=== PATIENT | male | born 2000 | race Caucasian/White ===

== ENCOUNTER 2021-02-19 20:57 | Observation (INO) | payer OTHER, BC, SELFPAY ==
--- NOTE | ~2021-02-19 | CT_ITS ---
EXAMINATION: CT brain wo con INDICATION: Head injury COMPARISON: None TECHNIQUE: Standard unenhanced head CT. The dose-length product (DLP) was 605.33 mGy-cm. The mA was a djusted according to patient size. Iterative reconstruction technique was employed. FINDINGS: There is a right frontal scalp hematoma. There is no intracranial hemorrhage, acute infarct ion, or abnormal mass lesion. The ventricles are normal. There is no abnormal mass effect or midline shift. The mccormick-white matter differentiation is normal. The basal cisterns are patent. The orbits are normal. There is mild mucosal thickening of the paranasal sinuses. IMPRESSION: 1. Right frontal scalp hematoma without acute intracranial abnormality. Reviewed, dictated and finalized at location F. ICAL QUALITY MANAGER
--- NOTE | ~2021-02-19 | XR_ITS ---
EXAMINATION: XR chest 1V INDICATION: Transient alteration of awareness TECHNIQUE: AP view of the chest is obtained. COMPARISON: 03/10/2016 FINDINGS: There are minimal airspace opacities of the lung bases. No pleural effusion or pneumothorax is identified. The cardiomediastinal silhouette is normal. IMPRESSION: 1. Minimal bibasilar airspace opacity, consistent with atelectasis versus pneumonia. Reviewed, dictated and finalized at location F. ER PIANO TECHNICIAN IMPRESSION: 1. Minimal bibasilar airspace opacity, consistent with atelectasis versus pneum onia.
[2021-02-19 21:00] VITALS: PULSE 124
[2021-02-19 21:09] VITALS: BP 152/88; PULSE 138; RESP 24; TEMP 36.7; O2SAT 100
--- NOTE | 2021-02-19 21:25 | ED.SEIZURE ---
HPI - Seizure General Chief Complaint: Seizure Stated Complaint: seizure, witnessed Time Seen by Provider: 02/19/21 21:19 Source: RN notes reviewed History of Present Illness HPI Narrative: Patient presents to emergency department from work via EMS for seizure. 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 but states he has not used methamphetamine since July he has had no formal work-up for seizures and is on any seizure medication states he did strike his head with swelling to his anterior forehead and headache denies any vision changes, chest pain shortness of breath abdominal pain nausea vomiting or any other Related Data Allergies Allergy/AdvReac Type Severity Reaction Status Date / Time codeine Allergy Unknown Verified 09/18/14 12:14 Review of Systems Review of Systems: Gen.: Denies fevers or chills Eyes: Denies eye pain or visual change ENT: Denies congestion Respiratory: Denies shortness of breath or cough CV: Denies chest pain or palpitations GI: Denies abdominal pain nausea, emesis or diarrhea Musculoskeletal: Denies back pain or muscle pain Neuro: See HPI Skin: Denies rash Except as documented, all other systems reviewed and negative [facility] Past Medical History Medical History (Updated 02/19/21 @ 23:05 by Sea Meraz DO) Seizure Family History Family History (Updated 09/18/14 @ 08:48 by DOCTOR UNKNOWN) Other Asthma Social History Social History Smoking status: Never smoker Exam Narrative: APPEARANCE: No acute distress, nontoxic, resting in bed HEENT: Normocephalic, swelling and tenderness over right forehead, OMM, EYES: PERRL, EOMI NECK: Supple, nontender, full range of motion without pain, no meningismus RESPIRATORY: No respiratory distress, clear to auscultation bilaterally with no rhonchi wheezing or rales CARDIOVASCULAR: RRR s murmur ABDOMINAL: Soft, nontender, nondistended MUSCULOSKELETAL: Moves all extremities. No clubbing, cyanosis or edema. NEURO: A and O ?3, following commands, speech normal, cranial nerves II through XII grossly intact,muscle strength 5 out of 5 bilateral upper and lower extremities SKIN:: Warm, dry. Normal Color PSYCHIATRIC: Normal affect/mood Course Course Emergency Course: Discussed with Dr. Bowser for neurology recommends patient loaded with Keppra 1000 mg x 1 this time followed by Keppra 500 twice daily request admission with EEG ordered This with patient benzodiazepines on UDS states that he does take intermittent Xanax but does not take it regularly Discussed Dr. Weir presentation work-up agrees with admission at this time Discussed with patient and family results of workup and diagnosis. Discussed need for admission. Patient and family understand and agree to current treatment plan Vital Signs Vital signs: Vital Signs Temperature 98.1 F 02/19/21 21:09 Pulse Rate 138 H 02/19/21 21:09 Respiratory Rate 24 H 02/19/21 21:09 Blood Pressure 152/88 H 02/19/21 21:09 Pulse Oximetry 100 02/19/21 21:09 Temperature 98.1 F 02/19/21 21:09 Pulse Rate 138 H 02/19/21 21:09 Respiratory Rate 24 H 02/19/21 21:09 Blood Pressure 152/88 H 02/19/21 21:09 Pulse Oximetry 100 02/19/21 21:09 MDM - Seizure Lab Data Result diagrams: 02/19/21 21:30 02/19/21 21:30 Labs: Lab Results 02/19/21 02/19/21 02/19/21 Range/Units 21:30 21:30 21:30 WBC 6.3 (4.5-10.0) K/mm3 RBC 4.86 (4.6-6.20) M/mm3 Hgb 14.9 (14.0-18.0) g/dL Hct 44.0 (42.0-52.0) % MCV 90.5 (80-100) fl MCH 30.7 (26-34) pg MCHC 33.9 (32-36) g/dl RDW 13.7 (11.5-14.5) % Plt Count 202 (150-375) k/mm3 MPV 8.8 (7.4-10.4) fl Immature Gran % (Auto) 0.2 (0-0.5) % Neut % (Auto) 62.7 (45.5-73.1) % Lymph % (Aut
[2021-02-19 21:36] LABS: Basophils Percent Auto 0.3 % (0.2-1.2); Eosinophils Absolute Auto 0.1 K/mm3 (0-0.3); Eosinophils Percent Auto 2.1 % (0-4.4); Hemoglobin 14.9 g/dL (14.0-18.0); Immature Granulocyte Absolute 0.01 K/mm3 (0.00-0.031); Immature Granulocyte Percent A 0.2 % (0-0.5); Lymphocytes Absolute Auto 1.58 K/mm3 (0.9-3.2); Lymphocytes Percent Auto 24.9 % (18.3-44.2); Mean Corpuscular HGB Conc 33.9 g/dl (32-36); Mean Corpuscular Hemoglobin 30.7 pg (26-34); Mean Corpuscular Volume 90.5 fl (80-100); Mean Platelet Volume 8.8 fl (7.4-10.4); Monocytes Absolute Auto 0.6 K/mm3 (0.1-0.6); Monocytes Percent Auto 9.8 % (2.6-8.5); Neutrophils Percent Auto 62.7 % (45.5-73.1); Platelet Count Result 202 k/mm3 (150-375); Red Blood Count 4.86 M/mm3 (4.6-6.20); Red Cell Distribution Width 13.7 % (11.5-14.5); White Blood Count 6.3 K/mm3 (4.5-10.0)
[2021-02-19 21:52] LABS: Alanine Aminotransferase 58 U/L (4-50); Albumin Level 4.8 g/dL (3.5-5.1); Alkaline Phosphatase 80 U/L (38-126); Anion Gap 4 mmol/L (8-16); Aspartate Amino Transferase 48 U/L (17-59); Bilirubin,Total 0.6 mg/dL (0.2-1.3); Blood Urea Nitrogen 19 mg/dL (9-20); Calcium 9.4 mg/dL (8.4-10.2); Carbon Dioxide 28 mmol/L (22-30); Chloride 102 mmol/L (98-107); Estimated CRCL calculation 122 ml/min; Estimated Glomerular Filt Rate > 60; Glucose 96 mg/dL (65-110); Potassium 3.8 mmol/L (3.4-5.0); Sodium 134 mmol/L (137-145)
[2021-02-19 22:23] LABS: Add Urine Microscopic? YES; Appearance Urine Clear (Clear); Bacteria Urine 2+ /hpf; Bilirubin Urine Negative (Negative); Blood Urine 3+ (Negative); Color Urine Yellow (Yellow); Glucose Urine UA Negative (Negative); Ketones Urine Negative (Negative); Leukocyte Esterase Ur Negative LEU/UL (Negative); Mucus Urine Rare /lpf; Nitrate Urine Negative (Negative); Protein Urine 1+ mg/dL (Negative); RBC Urine >75 /hpf (0-2); Specific Grav Ur 1.024 (1.001-1.035)
[2021-02-19] MEDS: levETIRAcetam 1000MG/NACL100ML 1,000 MG/100 ML BAG 400 MG IVPB (22:25)
[2021-02-19] MEDS: SODIUM CHLORIDE 0.9% IV 1,000 ML 999 ML IV CONT ×2 (22:25)
[2021-02-19 22:26] LABS: Ethanol < 10 mg/dL (<10)
[2021-02-19 22:33] LABS: Amphetamine Screen Urine Negative (Negative); Barbiturate Screen Urine Negative (Negative); Benzodiazepines Screen Urine Positive (Negative); Cannabinoid Screen Urine Positive (Negative); Cocaine Screen Urine Negative (Negative); Methadone Screen Urine Negative (Negative); Opiate Screen Urine Negative (Negative); Phencyclidine Screen Urine Negative (Negative)
[2021-02-20] MEDS: ACETAMINOPHEN 500 MG TABLET 1000 MG PO (01:00)
[2021-02-20] MEDS: SODIUM CHLORIDE 0.9% IV 1,000 ML 100 ML IV CONT (01:56)
[2021-02-20 01:59] VITALS: BMI 23.9
--- NOTE | 2021-02-20 02:31 | PC.NURSE ---
Recieved report from emergency department RN, Rica. Patient arrived to unit via wheelchair @ 0200. Changed into hospital gown and oriented to room and hospital setting. Call light placed within reach and successfully demonstrated use. Seizure pads placed along bed rails.
[2021-02-20 02:40] VITALS: BP 103/72; PULSE 78; RESP 17; TEMP 36.5; O2SAT 98
[2021-02-20 04:59] VITALS: BP 100/43; PULSE 78; RESP 16; TEMP 36.5; O2SAT 98
[2021-02-20] MEDS: QUEtiapine FUMARATE 25 MG TABLET PO (04:59)
[2021-02-20 05:46] LABS: Basophils Percent Auto 0.3 % (0.2-1.2); Eosinophils Absolute Auto 0.2 K/mm3 (0-0.3); Eosinophils Percent Auto 2.2 % (0-4.4); Hematocrit 38.3 % (42.0-52.0); Immature Granulocyte Absolute 0.01 K/mm3 (0.00-0.031); Immature Granulocyte Percent A 0.1 % (0-0.5); Lymphocytes Absolute Auto 2.22 K/mm3 (0.9-3.2); Lymphocytes Percent Auto 30.7 % (18.3-44.2); Mean Corpuscular HGB Conc 33.9 g/dl (32-36); Mean Corpuscular Hemoglobin 30.5 pg (26-34); Mean Corpuscular Volume 89.9 fl (80-100); Mean Platelet Volume 9.2 fl (7.4-10.4); Monocytes Percent Auto 13.3 % (2.6-8.5); Neutrophils Absolute Auto 3.9 K/mm3 (1.3-6.7); Neutrophils Percent Auto 53.4 % (45.5-73.1); Platelet Count Result 173 k/mm3 (150-375); Red Blood Count 4.26 M/mm3 (4.6-6.20); Red Cell Distribution Width 13.7 % (11.5-14.5); White Blood Count 7.2 K/mm3 (4.5-10.0)
[2021-02-20 05:59] LABS: Alanine Aminotransferase 42 U/L (4-50); Albumin Level 3.6 g/dL (3.5-5.1); Alkaline Phosphatase 54 U/L (38-126); Anion Gap -1 mmol/L (8-16); Aspartate Amino Transferase 34 U/L (17-59); Bilirubin,Total 0.5 mg/dL (0.2-1.3); Blood Urea Nitrogen 15 mg/dL (9-20); Carbon Dioxide 26 mmol/L (22-30); Chloride 109 mmol/L (98-107); Estimated CRCL calculation 135 ml/min; Estimated Glomerular Filt Rate > 60; Glucose 96 mg/dL (65-110); Potassium 3.8 mmol/L (3.4-5.0); Sodium 134 mmol/L (137-145)
[2021-02-20] MEDS: SERTRALINE HCL 50 MG TABLET 100 MG PO (09:44)
[2021-02-20] MEDS: busPIRone HCL 5 MG TABLET PO (09:45)
[2021-02-20] MEDS: levETIRAcetam 500 MG TABLET PO (09:45)
[2021-02-20] MEDS: GABAPENTIN 300 MG CAPSULE PO (09:57)
--- NOTE | 2021-02-20 10:14 | PC.NURSE ---
RN spoke w/ Dr. Almaraz. Patient is ok to discharge per him. Call office to schedule follow-up in 4 weeks.
--- NOTE | 2021-02-20 12:16 | PM.SD2 ---
Same Day Admit/Disch: HPI History of Present Illness Chief complaint: Seizure Narrative: Chato Olsen is a 20 year old male who presented to the ER from work by EMS for seizure episode. Patient had a witnessed tonic-clonic seizure at work. He does not remember the event and by the time he was awake he was already in the ambulance. He states that he went to work at 4:00 p.m. yesterday. He does report he had history of previous seizures which is felt secondary to methamphetamine use but states that he has used methamphetamine since 2 months now. His workup in the ER had unremarkable CBC and CMP ethyl alcohol level was negative urine drug screen was positive for benzodiazepine and cannabinoids. CT head was positive for right frontal scalp hematoma without any acute intracranial abnormality chest x-ray showed minimal bibasilar airspace opacity consistent with atelectasis versus pneumonia urinalysis showed some RBC in their without any marker for an infection. He was loaded with Keppra after consultation with the neurologist given episodes of recurrent seizures are and was monitored during the hospital stay. He was admitted for further monitoring. [facility] Past Medical History Medical History (Updated 02/19/21 @ 23:05 by Sea Meraz DO) Seizure Family History Family History (Updated 09/18/14 @ 08:48 by DOCTOR UNKNOWN) Other Asthma Social History Social History Smoking packs per day: 0.5 Smoking cigarettes per day: 10.0 Years smoked: 2 Smoking pack-years: 1.00 Smoking status: Current every day smoker Tobacco type: cigarettes Second hand tobacco smoke exposure: Yes Alcohol intake: former Substance use type: marijuana Last use: 02/19/21 Spiritual care concerns: No Same Day Admit/Disch: Med Pre-admit Medications Home Medications Medication Instructions Recorded Confirmed Type buspirone 5 mg PO TID 02/20/21 02/20/21 History gabapentin 300 mg PO DAILY 02/20/21 02/20/21 History quetiapine 25 mg PO HS MDD 100 02/20/21 02/20/21 History sertraline 100 mg PO DAILY 02/20/21 02/20/21 History Exam Narrative: APPEARANCE: No acute distress, nontoxic, resting in bed HEENT: Normocephalic, swelling and tenderness over right forehead, EYES: PERRL, EOMI NECK: Supple, nontender, full range of motion without pain, no meningismus RESPIRATORY: No respiratory distress, clear to auscultation bilaterally with no rhonchi wheezing or rales CARDIOVASCULAR: RRR s murmur ABDOMINAL: Soft, nontender, nondistended MUSCULOSKELETAL: Moves all extremities. No clubbing, cyanosis or edema. NEURO: A and O ?3, following commands, speech normal, cranial nerves II through XII grossly intact,muscle strength 5 out of 5 bilateral upper and lower extremities SKIN:: Warm, dry. Normal Color PSYCHIATRIC: Normal affect/mood DS: Data Data Completed and Pending Labs on day of discharge: Labs from last 24 hours 02/20/21 02/20/21 02/19/21 05:39 05:39 22:10 WBC 7.2 RBC 4.26 L Hgb 13.0 L Hct 38.3 L MCV 89.9 MCH 30.5 MCHC 33.9 RDW 13.7 Plt Count 173 MPV 9.2 Immature Gran % (Auto) 0.1 Neut % (Auto) 53.4 Lymph % (Auto) 30.7 Falls % (Auto) 13.3 H Eos % (Auto) 2.2 Baso % (Auto) 0.3 Lymph # (Auto) 2.22 Falls # (Auto) 1.0 H Eos # (Auto) 0.2 Baso # (Auto) 0.0 Abs Immat Gran (auto) 0.01 Absolute Neuts (auto) 3.9 Absolute Nucleated RBC 0.0 Nucleated RBC % 0.0 Sodium 134 L Potassium 3.8 Chloride 109 H Carbon Dioxide 26 Anion Gap -1 L BUN 15 Creatinine 0.80 Estim Creat Clear Calc 135 Estimated GFR > 60 Glucose 96 Calcium 8.0 L Total Bilirubin 0.5 AST 34 ALT 42 Alkaline Phosphatase 54 Total Protein 6.0 L Albumin 3.6 Urine Color Urine Appearance Urine pH Ur Specific [place] Urine Protein Urine Glucose (UA) Urine Ketones Ur Blood (Man) Urine Nitrate Urine Bilirubin
[2021-02-20 12:25] VITALS: BP 119/68; PULSE 93; RESP 14; TEMP 36.7; O2SAT 100
--- NOTE | 2021-03-08 11:14 | P.CONNEU_ITS ---
Consult date: 03/08/21 HPI: Chato Olsen is a 20 year old male /did not see the patient. [facility] Past Medical History Medical History (Updated 02/19/21 @ 23:05 by Sea Meraz DO) Seizure Family History Family History (Updated 09/18/14 @ 08:48 by DOCTOR UNKNOWN) Other Asthma Social History Social History Smoking packs per day: 0.5 Smoking cigarettes per day: 10.0 Years smoked: 2 Smoking pack-years: 1.00 Smoking status: Current every day smoker Tobacco type: cigarettes Second hand tobacco smoke exposure: Yes Alcohol intake: former Substance use type: marijuana Last use: 02/19/21 Spiritual care concerns: No Meds Home Medications and Allergies Home Medications Medication Instructions Recorded Confirmed Type buspirone 5 mg PO TID 02/20/21 02/20/21 History gabapentin 300 mg PO DAILY 02/20/21 02/20/21 History levetiracetam [Keppra] 500 mg PO Q12HR #60 tablet 02/20/21 Rx quetiapine 25 mg PO HS MDD 100 02/20/21 02/20/21 History sertraline 100 mg PO DAILY 02/20/21 02/20/21 History Allergies Allergy/AdvReac Type Severity Reaction Status Date / Time codeine Allergy Unknown Verified 09/18/14 12:14 Results Labs CBC & Chem 7: 02/20/21 05:39 02/20/21 05:39
== END 2021-02-20 12:56 | disposition home or self-care (01) ==
LOC: ANHED 23:05 → ANHSUROVER 02-20 09:32
PROVIDERS: Admitting Provider Internal Medicine; Emergency Provider Emergency Medicine; PCP Physician Assistant; Visit Provider Internal Medicine
DX: R56.9 Unspecified convulsions (principal); F17.210 Nicotine dependence, cigarettes, uncomplicated; F12.90 Cannabis use, unspecified, uncomplicated; Z79.899 Other long term (current) drug therapy
CPT/HCPCS: 36415; 70450; 71045; 80053; 80307; 81001; 85025; 87086; 96361; 96365; 99285; A9270; G0378; J1953; J7030

== ENCOUNTER 2021-10-24 15:41 | Emergency (ER) | payer BC, SELFPAY ==
--- NOTE | ~2021-10-24 | US_ITS ---
EXAMINATION: US scrotum doppler DATE: 10/24/2021 17:11 INDICATION: Painful swollen testicle. TECHNIQUE: Testicular sonogram utilizing grayscale and Doppler COMPARISON: None. FINDINGS: The right testis measures 4.4 x 2.4 x 2.9 cm. The left testis measures 5.3 x 2.8 x 3.3 cm. Normal rig ht testicular grayscale appearance with normal-appearing vascular flow on color Doppler. Subtle hypoe choic striations diffusely throughout the left testis with prominent asymmetric increased vascular fl ow suggestive of orchitis. The right epididymis is normal with normal vascular flow. The left epididy mis appears slightly thickened and edematous but with only mildly increased vascular flow on color Do ppler also suspicious for epididymitis. There is a small left hydrocele with diffuse low-level echoes . There is no varicocele or right hydrocele. IMPRESSION: 1. Edema, mild swelling and asymmetric increased vascular flow in the left epididymis and most promi nently in the left testis consistent with epididymoorchitis. Line 2. Likely secondary small left hydrocele. Reviewed, dictated and finalized at location A. IMPRESSION: 1. Edema, mild swelling and asymmetric increased vascular flow in the left epi didymis and most prominently in the left testis consistent with epididymoorchit is. Line 2. Likely secondary small left hydrocele.
[2021-10-24 15:43] VITALS: BP 113/85; PULSE 106; RESP 16; TEMP 36.7; O2SAT 100
[2021-10-24 19:42] VITALS: BP 132/88; PULSE 88; RESP 17; O2SAT 98
--- NOTE | 2021-10-24 21:21 | ED.MALEGU ---
HPI - Male Genitourinary General Chief complaint: Urogenital-Male <Stephanie Carranza PA-C - Last Filed: 10/24/21 21:52> Stated complaint: swollen L testicle <RAYNE Villagran Last Filed: 10/24/21 21:52> Time Seen by Provider: 10/24/21 19:44 <Stephanie Carranza PA-C - Last Filed: 10/24/21 21:52> Source: patient <RAYNE Villagran Last Filed: 10/24/21 21:52> Mode of arrival: ambulatory <RAYNE Villagran Last Filed: 10/24/21 21:52> Limitations: no limitations <RAYNE Villagran Last Filed: 10/24/21 21:52> History of Present Illness HPI Narrative: This is a 20 year old male that presents to the ER for left testicular pain and swelling. Ongoing since yesterday. Does report concern for STDs. Denies fever, dysuria, rashes, or abnormal discharge. <RAYNE Villagran Last Filed: 10/24/21 21:52> Related Data Home medications: Home Medications Medication Instructions Recorded Confirmed buspirone 5 mg tablet 5 mg PO TID 02/20/21 02/20/21 gabapentin 300 mg capsule 300 mg PO DAILY 02/20/21 02/20/21 quetiapine 25 mg tablet 25 mg PO HS 02/20/21 02/20/21 sertraline 100 mg tablet 100 mg PO DAILY 02/20/21 02/20/21 <Stephanie Carranza PA-C - Last Filed: 10/24/21 21:52> Allergies/Adverse reactions: Allergies Allergy/AdvReac Type Severity Reaction Status Date / Time codeine Allergy Unknown Difficulty Verified 10/24/21 15:47 Breathing <RAYNE Villagran Last Filed: 10/24/21 21:52> Review of Systems Review of Systems: CONSTITUTIONAL: Denies fever GASTROINTESTINAL: Denies abdominal pain, nausea, vomiting GENITOURINARY: Denies dysuria or hematuria. SKIN: Denies rash <RAYNE Villagran Last Filed: 10/24/21 21:52> All systems reviewed & are unremarkable except as noted in HPI and below <Stephanie Carranza PA-C - Last Filed: 10/24/21 21:52> PMFSH Past Medical History Medical History: Medical History (Updated 10/24/21 @ 21:24 by Stephanie Carranza PA-C) Seizure <Stephanie Carranza PA-C - Last Filed: 10/24/21 21:52> Family History Family History: Family History (Updated 09/18/14 @ 08:48 by DOCTOR UNKNOWN) Other Asthma <Stephanie Carranza PA-C - Last Filed: 10/24/21 21:52> Social History Social History: Social History Smoking packs per day: 0.5 Smoking cigarettes per day: 10.0 Years smoked: 2 Smoking pack-years: 1.00 Smoking status: Current every day smoker Tobacco type: cigarettes Second hand tobacco smoke exposure: Yes Alcohol intake: former Substance use type: marijuana Last use: 02/19/21 Spiritual care concerns: No <Stephanie Carranza PA-C - Last Filed: 10/24/21 21:52> Exam Narrative: GENERAL: Well-appearing, well-nourished, and in no acute distress. HEAD: Normocephalic, atraumatic. EYES: EOMI. CHEST: Clear to auscultation. No respiratory distress. No wheezes rales or rhonchi HEART: Regular rate and rhythm. No murmur heard. Normal peripheral pulses. ABDOMEN: Soft, nontender, nondistended, normal active bowel sounds. EXTREMITIES: Normal range of motion. No edema. SKIN: Warm, dry, no rash. NEURO: No focal deficits. Alert and oriented x3. PSYCH: Normal mood and affect MALE GENITAL: Mild left testicular swelling, tender to palpation. Mild overlying scrotal redness. No abnormal rashes or discharge noted <Stephanie Carranza PA-C - Last Filed: 10/24/21 21:52> Course CHROME TANNING DRUM OPERATOR/PA Physician Supervision For this patient encounter, I reviewed the CHROME TANNING DRUM OPERATOR or PA documentation, treatment plan, and medical decision making <Leon Moran MD - Last Filed: 10/24/21 22:13> Vital Signs Vital signs: Vital Signs Temperature 98.1 F 10/24/21 15:43 Pulse Rate 106 H 10/24/21 15:43 Respiratory Rate 16 10/24/21 15:43 Blood Pressure 113/85 10/24/21 15:43 Pulse Oximetry 100 10/24/21 15:43 Temperature 98.1 F 10/24/21 15:43 Pulse Rate 80 10/24/21 22:07 Respiratory Rat
[2021-10-24 21:30] LABS: Appearance Urine Slightly Cloudy (Clear); Bilirubin Urine 1+ (Negative); Blood Urine Negative (Negative); Color Urine Yellow (Yellow); Glucose Urine UA Negative (Negative); Ketones Urine Negative (Negative); Leukocyte Esterase Ur Negative LEU/UL (Negative); Nitrate Urine Negative (Negative); Protein Urine Trace mg/dL (Negative)
[2021-10-24 21:33] LABS: Add Urine Microscopic? YES; Mucus Urine Heavy /lpf; RBC Urine 0-2 /hpf (0-2); Squamous Epithelial Cell Urine Rare /hpf (Few); WBC Urine 0-3 /hpf
[2021-10-24] MEDS: WATER, STERILE FOR INJECTION 10 ML VIAL XX (21:52)
[2021-10-24] MEDS: cefTRIAXone 1 GM VIAL 0.5 GM IM (21:52)
[2021-10-24 22:07] VITALS: BP 132/66; PULSE 80; RESP 18; O2SAT 97
== END 2021-10-24 22:07 | disposition home or self-care (01) ==
PROVIDERS: Emergency Medicine; Emergency Provider Emergency Medicine; PCP Physician Assistant
DX: N45.3 Epididymo-orchitis (principal); F17.210 Nicotine dependence, cigarettes, uncomplicated
CPT/HCPCS: 76870; 81001; 87491; 87591; 93976; 96372; 99284; J0696

== ENCOUNTER 2022-07-13 10:30 | Emergency (ER) | payer OTHER, BC, SELFPAY ==
[2022-07-13 10:37] VITALS: BP 127/70; PULSE 101; RESP 16; TEMP 36.9; O2SAT 100
--- NOTE | 2022-07-13 10:54 | ED.MALEGU ---
HPI - Male Genitourinary General Chief complaint: Urogenital-Male Stated complaint: Male Urogenital Time Seen by Provider: 07/13/22 10:45 Source: patient and RN notes reviewed Mode of arrival: ambulatory Limitations: no limitations History of Present Illness HPI Narrative: Patient presents today with a 3 day history of urethral discharge and dysuria. Denies hematuria, abdominal pain, testicular pain, scrotal swelling or redness, genital sores. Patient had unprotected intercourse with a new partner approximately 1 week ago, but denies any known exposure to STIs. Related Data Home Medications Medication Instructions Recorded Confirmed buspirone 5 mg tablet 5 mg PO TID 02/20/21 02/20/21 gabapentin 300 mg capsule 300 mg PO DAILY 02/20/21 02/20/21 quetiapine 25 mg tablet 25 mg PO HS 02/20/21 02/20/21 sertraline 100 mg tablet 100 mg PO DAILY 02/20/21 02/20/21 Allergies Allergy/AdvReac Type Severity Reaction Status Date / Time codeine Allergy Unknown Difficulty Verified 10/24/21 15:47 Breathing Review of Systems Review of Systems: CONSTITUTIONAL: Denies body aches, fever, chills, or sweats. EYES: Denies visual changes, redness, or discharge. ENT: Denies rhinorrhea, congestion, sore throat, or otalgia. CARDIOVASCULAR: Denies chest pain, palpitations, or edema. RESPIRATORY: Denies cough or dyspnea. GASTROINTESTINAL: Denies abdominal pain, nausea, vomiting, or diarrhea. GENITOURINARY: + dysuria, urethral discharge. SKIN: Denies rash, itching, or wounds. MUSCULOSKELETAL: Denies back pain, joint pain, or myalgia. NEUROLOGIC: Denies headache, numbness, tingling, or weakness. PSYCH: Denies depression or anxiety. [facility] Past Medical History Medical History Seizure Family History Family History Other Asthma Social History Social History Smoking packs per day: 0.5 Smoking cigarettes per day: 10.0 Years smoked: 2 Smoking pack-years: 1.00 Smoking status: Current every day smoker Tobacco type: cigarettes Second hand tobacco smoke exposure: Yes Alcohol intake: former Substance use type: marijuana Last use: 02/19/21 Spiritual care concerns: No Comments At time of signature, I have reviewed and agree with nursing past medical, surgical, social and family history unless otherwise noted. Please see nursing chart for further information. There is no relevant family history pertinent to the presenting complaint Exam Narrative: GENERAL: Well-appearing, well-nourished, and in no acute distress. HEAD: Normocephalic, atraumatic. EYES: EOMI. No redness or drainage. Conjunctivae normal. ENT: Mucous membranes pink and moist. NECK: Normal AROM. CHEST: No respiratory distress. : Moderate clear yellow urethral discharge. Scant redness at the meatus. Penis is nontender. No genital sores noted. Scrotum is nontender without edema. Testicles are nontender. Exam chaperoned by Sharlene Spear RN. EXTREMITIES: Normal range of motion. No edema. SKIN: Warm, dry, no rash. Capillary refill normal. Normal skin turgor. NEURO: No focal deficits. Alert and oriented x3. Gait steady. PSYCH: Normal affect. No signs of depression or anxiety. Course Course Level of Care: Express Care Visit Vital Signs Vital signs: Vital Signs Temperature 98.5 F 07/13/22 10:37 Pulse Rate 101 H 07/13/22 10:37 Respiratory Rate 16 07/13/22 10:37 Blood Pressure 127/70 07/13/22 10:37 Pulse Oximetry 100 07/13/22 10:37 Oxygen Delivery Room Air 07/13/22 10:37 Temperature 98.5 F 07/13/22 10:37 Pulse Rate 101 H 07/13/22 10:37 Respiratory Rate 16 07/13/22 10:37 Blood Pressure 127/70 07/13/22 10:37 Pulse Oximetry 100 07/13/22 10:37 Oxygen Delivery Room Air 07/13/22 10:37 Reviewed. Pt has been inst
[2022-07-13] MEDS: cefTRIAXone 500 MG, LIDOCAINE HCL 1% LOCAL INJ 1 ML IM (11:04)
== END 2022-07-13 11:15 | disposition home or self-care (01) ==
PROVIDERS: Emergency Provider Nurse Practitioner
DX: R36.9 Urethral discharge, unspecified (principal); Z20.2 Contact with and (suspected) exposure to infections with a predominantly sexual mode of transmission
CPT/HCPCS: 81003; 87491; 87591; 87661; 96372; 99213; G0463; J0696

== ENCOUNTER 2024-04-01 15:24 | Emergency (ER) | payer BC, MEDICAID, SELFPAY ==
[2024-04-01 15:38] VITALS: BP 128/92; PULSE 112; RESP 16; TEMP 36.7; O2SAT 99
--- NOTE | 2024-04-01 17:33 | ED.SKABFB ---
HPI - Skin/Abscess/Foreign Bdy General Chief complaint: Skin/Abscess/Foreign Body Stated complaint: rash Source: patient, RN notes reviewed and old records reviewed Mode of arrival: ambulatory Limitations: no limitations History of Present Illness HPI narrative: Patient presents with complaints of itchy rash scattered to arms, trunk, head. Reports rash has been intermittent for 1 week. Says today is the worst it has been. He reports that rash is itchy. He has been putting mupirocin on the rash with no relief. Denies any change in lotions, soaps, detergent Related Data Home Medications ?Medication ?Instructions ?Recorded ?Confirmed ?Last Taken ?Type dextroamphetamine-amphetamine ER 20 mg PO DAILY 04/01/24 04/01/24 Unknown History 20 mg 24hr capsule,extend release Allergies Allergy/AdvReac Type Severity Reaction Status Date / Time codeine Allergy Unknown Difficulty Verified 04/01/24 17:03 Breathing Review of Systems Review of Systems: All systems reviewed & are unremarkable except as noted in HPI and below Constitutional: Constitutional: Reports no additional constitutional complaints ENT: Reports system reviewed and no additional complaints, except as documented Cardiovascular: Cardiovascular: Reports no additional cardiovascular complaints Respiratory: Respiratory: Reports no additional respiratory complaints Gastrointestinal: Gastrointestinal: Reports no additional gastrointestinal complaints Integumentary/Breasts: Skin/Breast: Reports system reviewed and no additional complaints, except as docu, Reports as per HPI and Reports rash PMFSH Past Medical History Medical History Seizure Family History Family History Other Asthma Social History Social History Smoking packs per day: 0.5 Smoking cigarettes per day: 10.0 Years smoked: 2 Smoking pack-years: 1.00 Smoking status: Current every day smoker Tobacco type: cigarettes Second hand tobacco smoke exposure: Yes Alcohol intake: former Substance use type: marijuana Last use: 02/19/21 Spiritual care concerns: No Comments At the time of my signature, I reviewed and agree with the nursing past medical, surgical, social, and family history. There is no relevant family history pertinent to the patient complaint. Exam Const: General: cooperative, no acute distress, alert and awake Orientation/consciousness: oriented to person, oriented to place and oriented to time HENMT: Head: normal to inspection Mouth: Yes moist mucous membranes Resp: Effort & Inspection: normal respiratory effort and able to speak in complete sentences Auscultation: clear to auscultation bilaterally, no crackles, no rales, no rhonchi and no wheezes Cardio: Palpation: normal PMI Rate: regular rate Rhythm: regular rhythm Heart sounds: S1 normal heart sound present and S2 normal heart sound present Skin: General skin exam: rashes (Maculopapular rash scattered to arms, trunk, face) Neuro: General: oriented to person, oriented to place and oriented to time Cranial nerves: Yes CN's II-XII intact bilaterally Psych: Appearance: grossly normal Thought process: Normal thought process present Insight: Good insight present (Psych) Judgement: Good judgement present (Psych) Course Course Level of Care: Express Care Visit Vital Signs Vital signs: Vital Signs Temperature 98.1 F 04/01/24 15:38 Pulse Rate 112 H 04/01/24 15:38 Respiratory Rate 16 04/01/24 15:38 Blood Pressure 128/92 H 04/01/24 15:38 Pulse Oximetry 99 04/01/24 15:38 Oxygen Delivery Room Air 04/01/24 15:38 Temperature 98.1 F 04/01/24 15:38 Pulse Rate 112 H 04/01/24 15:38 Respiratory Rate 16 04/01/24 15:38 Blood Pressure 128/92 H 04/01/24 15:38 Pulse Oximetry 99 04/01/24 15:38 Oxygen Delivery Room Air 04/01/24 15:38 Reviewed MDM - Skin/Abscess/Foreign Bdy MDM Narrative Medical decision making narrative: Patient with itchy rash, he cannot recall any changes to lotions, soaps, detergents. Denies any new foods. Not in any distress, no wheezing or stridor. Start prednisone. Discharge instructions reviewed with patient, as well as provided in writing per nursing staff. The instructions also include specific and strict return/GO TO THE ER as well as f/u information. All questions have been answered, and the patient deny any further questions with discharge and discharge plan. Some parts of this dictation were generated by voice recognition software and may contain typographical and/or grammatical inaccuracies. Differential Diagnosis Differential diagnosis: Likely dermatophytosis, allergic reaction to drug, insect bites and contact dermatitis Medical Records Attestation: I reviewed the patient's medical records. Discharge Plan Discharge Clinical Impression: Dermatitis Patient Disposition: Home, Self-Care Condition: Stable Instructions: Antibiotic Form, Dermatitis (ED) Additional Instructions: Take medications as prescribed. Follow-up with primary care provider. Emergency department for new or worse symptoms Patient Language: Setswana Prescriptions: New prednisone 50 mg tablet 50 mg PO DAILY Qty: 5 0RF No Action dextroamphetamine-amphetamine 20 mg capsule,extended release 24hr 20 mg PO DAILY Follow-up/Referrals: PHYSICIAN NOT ON STAFF,NONSTAFF [Primary Care Provider] - Time of Disposition: 17:39
== END 2024-04-01 17:44 | disposition home or self-care (01) ==
PROVIDERS: Emergency Provider Nurse Practitioner Family
DX: L30.9 Dermatitis, unspecified (principal); F17.210 Nicotine dependence, cigarettes, uncomplicated
CPT/HCPCS: 99213; G0463

== ENCOUNTER 2024-04-04 12:23 | Emergency (ER) | payer BC, MEDICAID, SELFPAY ==
--- OUTSIDE RECORDS SUMMARY | 2024-04-04 12:38 | XMS_ITS | Clinical Summary ---
Author Organization [facility] Address [address] [place] [address] Phone Care Team Providers Care Finishing Area Supervisor Name Role Phone Nani Shahid Primary Care Provider [phone] Allergies Active Allergy Reactions Criticality Noted Date Comments Codeine Shortness of Breath/Wheezing High 020 Medications No known medications Active Problems Problem Noted Date Diagnosed Date Seizure 05/20/2019 Drug reaction 05/20/2019 Facial laceration 05/20/2019 Social History Tobacco Use Types Packs/Day Years Used Date Smoking Tobacco: Every Day Cigarettes Alcohol Use Standard Drinks/Week Comments Not Currently 0 (1 standard drink = 0.6 oz pur e alcohol) Sex and Gender Information Value Date Recorded Sex Assigned at Not on file Legal Sex Male 1:32 PM CDT Gender Identity Not on file Sexual Orientation Not on file Last Filed Vital Signs Vital Sign Reading Time Taken Comments Blood Pressure 140/78 05/20/2019 5:35 PM CDT Pulse 127 05/20/2019 5:35 PM CDT Temperature 36.7 C (98.1 F) 05/20/2019 1:36 PM CDT Respiratory Rate 35 05/20/2019 5:35 PM CDT Oxygen Saturation 98% 05/20/2019 5:35 PM CDT Inhaled Oxygen Concentration - - Weight 66.7 kg (147 lb) 05/20/2019 1:36 PM CDT Height 180.3 cm (5' 11 ) 05/20/2019 1:36 PM CDT Body Mass Index 20.5 05/20/2019 1:36 PM CDT Plan of Treatment Health Maintenance Due Date Last Done Comments HPV VACCINES (1 - Male 3-dos e series) 11/03/2014 DTAP/TDAP/TD VACCINES (1 - Tdap) 11/03/2018 HEPATITIS B VACCINES (1 of 3 - 19+ 3-dose series) 11/03/2018 INFLUENZA VACCINE (#1) 2023 PNEUMOCOCCAL VACCINE 0-64 YEARS Aged Out No longer eligible based on patient's age to complete this topic Care Teams Finishing Area Supervisor Relationship Specialty Start Date End Date Nani Shahid PA PCP - General Physician Systems Mgr 05/20/19
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
--- OUTSIDE RECORDS SUMMARY | 2024-04-04 12:38 | XMS_ITS | Clinical Summary ---
Author Organization [facility] Address [address], [address] [address] Phone Care Team Providers Care Project Reservoir Engineer Name Role Phone John Vasquez MD Primary Care Provider [phone] Allergies Active Allergy Reactions Criticality Noted Date Comments Codeine Anaphylaxis,Shortness of Breath High 09/2012 Prochlorperazine Palpitations 07/02/2021 Medications busPIRone (BUSPAR) 15 MG Tablet buspirone 15 mg tablet TAKE 1 TABLET BY MOUTH TWICE A DAY DIRECTED Active QUEtiapine (SEROquel) 100 MG Tablet quetiapine 100 mg tablet TAKE 1 TABLET BY MOUTH EVERY DAY AT BEDTIME FOR 30 DAYS Active sertraline (ZOLOFT) 100 MG Tablet sertraline 100 mg tablet TAKE 1 TABLET BY MOUTH EVERY DAY DIRECTED Active Active Problems Problem Noted Date Diagnosed Date Inattention 07/02/2021 Anxiety Immunizations Immunization Administration Dates Next Due DTAP VACCINE 09/24/2005, 2,05/15/2000,2000,03/03/2000 HEP B/HIB Combined Vaccine 11/05/2000,04/07/2000 ,03/03/2000 Hib Vaccine,unspecified Formulation 06/02/2001 Inactivated Polio Vaccine 09/24/2005,,04/07/2000,2000 Influenza Vaccine, Quadrivalent, PF 11/08/2017 MMR Vaccine 09/24/2005,11/05/2000 Meningococcal Vaccine 11/08/2017,09/18/2014 Pneumococcal Vaccine Peds - 7 Valent ,05/15/2000,04/07/2000,2000 TDAP Vaccine 10/03/2011 Varicella Vaccine Live 10/03/2011,11/05/2000 Family History Medical History Relation Name Comments No Known Problems Father No Known Problems Mother Relation Name Status Comments Father Alive Mother Alive Social History Tobacco Use Types Packs/Day Years Used Date Smoking Tobacco: Every Day Cigarettes 0.5 6.3 Started: 12/2017 Smokeless Tobacco: Never Tobacco Cessation:Ready to Q uit: No; Counseling Given: Yes Alcohol Use Standard Drinks/Week Comments Not Currently 0 (1 standard drink = 0.6 oz pur e alcohol) PHQ-2 Answer Date Recorded Total Score - Questions 1-9 24 06/23 Sexually Active Control Partners Comments Not Currently Sex and Gender Information Value Date Recorded Sex Assigned at Not on file Legal Sex Male 2:26 AM CDT Gender Identity Not on file Sexual Orientation Not on file Last Filed Vital Signs Vital Sign Reading Time Taken Comments Blood Pressure 120/64 07/02/2021 7:17 AM CDT Pulse 94 07/02/2021 7:17 AM CDT Temperature 36.6 C (97.8 F) 07/02/2021 7:17 AM CDT Respiratory Rate 14 07/02/2021 7:17 AM CDT Oxygen Saturation 98% 07/02/2021 7:17 AM CDT Inhaled Oxygen Concentration - - Weight 68.5 kg (151 lb 1.6 oz) 07/02/2021 7:17 A M CDT Height 181.6 cm (5' 11.5 ) 07/02/2021 7:17 AM CD T Body Mass Index 20.78 07/02/2021 7:17 AM CDT Plan of Treatment Health Maintenance Due Date Last Done Comments Hepatitis C Virus (HCV) Screening 1999 Human Papillomavirus (HPV) Immunization (1 - Male 3-dose series) 11/03/2014 DTaP/Tdap/Td Immunization (7 - Td or Tdap) 10/02/2021 10/03/2011, 09/24/2005, 06/02/2001, Additional history exists Influenza Immunization (#1) 2023 11/08/2017 SARS-COV-2 Immunization (2023-25 season) 2023 Respiratory Syncytial Virus (RSV) Immunization (Adult) (1 - 1-dose 75+ series) 11/03/2074 Hepatitis B Immunization Completed 001, 04/07/2000, 03/03/2000 Pneumococcal Immunization Combined Aged Out 11/05/2000, 05/15/2000, 04/07/2000, Additional history exists No longer eligible based on patient's age to complete this topic Meningococcal Immunization (ACWY) Completed 11/08/2017, 09/18/2014 Rotavirus Immunization Aged Out No lo nger eligible based on patient's age to complete this topic Insurance MEDICAID [place] Care Teams Project Reservoir Engineer Relationship Specialty Start Date End Date John Vasquez MD PCP - General Family Medicine 07/02/21
[2024-04-04 12:56] VITALS: BP 137/84; PULSE 85; RESP 14; TEMP 36.3; O2SAT 100
--- NOTE | 2024-04-04 14:56 | ED.SKABFB ---
HPI - Skin/Abscess/Foreign Bdy General Chief complaint: Skin/Abscess/Foreign Body Stated complaint: rash x1 week Time Seen by Provider: 04/04/24 14:52 Source: patient Mode of arrival: ambulatory Limitations: no limitations History of Present Illness HPI narrative: This is a 23 year old male that presents to the ER for itchy rash. Ongoing over the last couple of days. No known exposures. He was seen at urgent care for this. Is currently taking Prednisone and Benadryl. Related Data Home Medications ?Medication ?Instructions ?Recorded ?Confirmed ?Last Taken ?Type dextroamphetamine-amphetamine ER 20 mg PO DAILY 04/01/24 04/01/24 Unknown History 20 mg 24hr capsule,extend release Allergies Allergy/AdvReac Type Severity Reaction Status Date / Time codeine Allergy Unknown Difficulty Verified 04/04/24 13:50 Breathing Review of Systems Review of Systems: CONSTITUTIONAL: Denies fever SKIN: Reports rash and itching. All systems reviewed & are unremarkable except as noted in HPI and below PMFSH Past Medical History Medical History Seizure Family History Family History (Reviewed 07/13/22 @ 10:55 by Afsaneh Negrete, [facility], ) Other Asthma Social History Social History (Reviewed 07/13/22 @ 10:55 by Afsaneh Negrete, [facility], ) Smoking packs per day: 0.5 Smoking cigarettes per day: 10.0 Years smoked: 2 Smoking pack-years: 1.00 Smoking status: Current every day smoker Tobacco type: cigarettes Second hand tobacco smoke exposure: Yes Alcohol intake: former Substance use type: marijuana Last use: 02/19/21 Spiritual care concerns: No Exam Narrative: GENERAL: Well-appearing, well-nourished, and in no acute distress. HEAD: Normocephalic, atraumatic. EYES: EOMI. CHEST: No respiratory distress. HEART: Regular rate EXTREMITIES: Normal range of motion. No edema. SKIN: Warm, dry. Papular rash present on the chest, back, arms NEURO: No focal deficits. Alert and oriented x3. PSYCH: Normal mood and affect Course Course Emergency Course: patient agrees with plan of care Vital Signs Vital signs: Vital Signs Temperature 97.4 F L 04/04/24 12:56 Pulse Rate 85 02/10/25 12:56 Respiratory Rate 14 04/04/24 12:56 Blood Pressure 137/84 04/04/24 12:56 Pulse Oximetry 100 04/04/24 12:56 Oxygen Delivery Room Air 04/04/24 12:56 Temperature 97.4 F L 04/04/24 12:56 Pulse Rate 85 04/04/24 12:56 Respiratory Rate 14 04/04/24 12:56 Blood Pressure 137/84 04/04/24 12:56 Pulse Oximetry 100 04/04/24 12:56 Oxygen Delivery Room Air 04/04/24 12:56 MDM - Skin/Abscess/Foreign Bdy MDM Narrative Medical decision making narrative: Patient presents the emergency department for itchy rash. Papular rash present to the chest, back, arms. Will be started on longer steroid taper and was instructed on scheduled antihistamines. He is to follow up with his PCP. He was given warnings to return to the ER Differential Diagnosis Differential diagnosis: Likely viral exanthem, urticaria, allergic reaction to drug, insect bites and contact dermatitis Critical Care Time Critical Care Time Critical Care Time: No Discharge Plan Discharge Clinical Impression: Rash and nonspecific skin eruption Patient Disposition: Home, Self-Care Condition: Stable Instructions: Acute Rash (ED) Additional Instructions: Return to the emergency department if you experience worsening symptoms, or any other concerns Take a Pepcid and Zyrtec daily. Take steroid taper as prescribed. Benadryl as needed for severe itching Follow-up with your primary care doctor Patient Language: Telugu Prescriptions: New prednisone 10 mg tablet 10 mg PO DAILY Qty: 45 0RF Rx Instructions: 5 tabs daily for 3 days, 4 tabs daily for 3 days, 3 tabs daily for 3 days, 2 tabs daily for 3 days, 1 tab daily for 3 days No Action dextroamphetamine-amphetamine 20 mg capsule,extended release 24hr 20 mg PO DAILY prednisone 50 mg tablet 50 mg PO DAILY Qty: 5 0RF Follow-up/Referrals: PHYSICIAN NOT ON STAFF,NONSTAFF [Primary Care Provider] -
--- OUTSIDE RECORDS SUMMARY | 2024-04-04 15:08 | XMS_ITS | Clinical Summary ---
Author Organization [facility] Address [address] [place] [address] Phone Care Team Providers Care Supervisor Riveting Name Role Phone Nani Shahid Primary Care Provider [phone] Allergies Active Allergy Reactions Criticality Noted Date [...] age to complete this topic Care Teams Supervisor Riveting Relationship Specialty Start Date End Date Nani Shahid PA PCP - General Physician Welding Manager 05/20/19
--- OUTSIDE RECORDS SUMMARY | 2024-04-04 15:08 | XMS_ITS | Clinical Summary ---
Author Organization [facility] Address [facility] [place] [address] Care Team Providers Care Sales And Marketing Analyst Name Role Phone None, Provider Primary Care Provider Unavaila ble Allergies Active Allergy Reactions Criticality Noted Date Comments Codeine Shortness of Breath High 08/11/2022 Medications No known medications Active Problems No known active problems Social History Tobacco Use Types Packs/Day Years Used Date Smoking Tobacco: Every Day Cigarettes Smokeless Tobacco: Never Tobacco Cessation:Ready to Q uit: Not Asked; Counseling Given: Not Answered Sex and Gender Information Value Date Recorded Sex Assigned at Not on file Legal Sex Male 5:28 PM CDT Gender Identity Not on file Sexual Orientation Not on file Last Filed Vital Signs Vital Sign Reading Time Taken Comments Blood Pressure 138/86 08/11/2022 4:34 PM CDT Pulse 93 08/11/2022 4:34 PM CDT Temperature 37 C (98.6 F) 08/11/2022 4:34 PM CDT Respiratory Rate 18 08/11/2022 4:34 PM CDT Oxygen Saturation 100% 08/11/2022 4:34 PM CDT Inhaled Oxygen Concentration - - Weight 72.6 kg (160 lb) 08/11/2022 4:34 PM CDT Height 180.3 cm (5' 11 ) 08/11/2022 4:34 PM CDT Body Mass Index 22.32 08/11/2022 4:34 PM CDT Plan of Treatment Health Maintenance Due Date Last Done Comments Annual Physical 11/03/2002 Pneumococcal Vaccine: Pediatrics (0 to 5 Years) and At-Risk Patients (6 to 64 Years) (1 of 2 - PCV) 11/03/2005 11/05/2000, 05/15/2000, 04/07/2000, Additional history exists HPV Vaccines (1 - Male 3-dose series) 11/03/2014 Hepatitis C 11/03/2017 DTaP, Tdap and Td Vaccines (7 - Td or Tdap) 10/02/2021 10/03/2011, 09/24/2005, 06/02/2001, Additional history exists COVID-19 Vaccine (2023- season) 2023 Influenza Adult (#1) 2023 11/08/2017 Hepatitis B Vaccines Completed 11/05/2000, 04/07/2000, 03/03/2000 Meningococcal Vaccine Completed 11/08/2017, 015 Meningococcal B Vaccine Aged Out No l onger eligible based on patient's age to complete this topic RSV Immunizations Under 20 Months Aged Out No longer eligible based on patient's age to complete [place] [address] [facility] Care Teams Sales And Marketing Analyst Relationship Specialty Start Date End Date None, Provider, MD PCP - General UNKNOWN PHYSICIAN SPECIALTY 08/11/22
--- OUTSIDE RECORDS SUMMARY | 2024-04-04 15:08 | XMS_ITS | Clinical Summary ---
Author Organization [facility] Address [address], [address] [address] Phone Care Team Providers Care Lead Die Molder Name Role Phone John Vasquez MD Primary Care Provider [phone] Allergies Active Allergy Reactions Criticality Noted Date [...] this topic Insurance [place]ID [place] Care Teams Lead Die Molder Relationship Specialty Start Date End Date John Vasquez MD PCP - General Family Medicine 07/02/21
--- OUTSIDE RECORDS SUMMARY | 2024-04-04 15:08 | XMS_ITS | Continuity of Care Document ---
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 Role Phone [facility] Unavailable Unavailable Problems Problem Status Onset Date [...] bid, # 60 capsule(s), Refill(s) 0, Pharmacy: [facility], 180, cm, 12/03/23 22:00:00 CDT, Height (cm), kg, 12/03/23 21:00:00 CDT, Weight (kg), 91.[address] [place] [address] Ibuprofen 200 MG Oral Tablet 400 mg = 2 Tablet(s), Oral, q6h, Scheduled / PRN PRN as needed for pain Active [address] [place] [address] Fexofenadine hydrochloride 60 MG Oral Tablet [Jaquelin] 60 mg = 1 Tablet(s), Oral, bid, Scheduled / PRN PRN as needed for allergy symptoms Active [address] [place] [address] Allergies, Adverse Reactions, Alerts Substance Category Reaction Severity Reaction type Status Date Reported Comments Source codeine Assertion Drug allergy Active [facility] Immunizations Immunization Date Given Site Status Last Updated Comments So nick diphtheria/pertu is acel/tetanus adult 12/03/2023 Right Upper Arm completed [facility] SURGERY Results Order Name Results Value Reference Range Date Interpretation Comments Source GENERAL CHEMISTRY BUN 12 mg/dL 6 - 20 12/06 09:49 :00 [facility] GENERAL CHEMISTRY Calcium 9.1 mg/dL 8.3 - 10.6 12/06 09:49 :00 [facility] GENERAL CHEMISTRY Glucose Lvl 99 mg/dL 70 - 139 12/06 09:49 :00 [facility] CHEMISTRY Chloride 107 mmol/L 98 - 107 12/06 09:49 :00 [facility] GENERAL CHEMISTRY Sodium 140 mmol/L 136 - 145 12/06 09:49 :00 [facility] GENERAL CHEMISTRY Potassium 3.8 mmol/L 3.5 - 5.1 12/06 09:49 :00 [facility] GENERAL CHEMISTRY CO2 29 mmol/L 20 - 31 12/06 09:49 :00 [facility] CHEMISTRY Anion gap 8 mmol/L 0 - 20 12/06 09:49 :00 [facility] CHEMISTRY Creatinine, standardized 0.6 mg/dL 0.7 - 1.2 12/06 09:49 :00 Interpretive Data: Ceoxds-uo-jxr e transgender patients on testosterone therapy should have results assessed using the male reference range. Kony-ef-pslsy e transgender patients on hormone-modul ating therapy clinical judgment is advisedfor assessment. [facility] GENERAL CHEMISTRY Estimated GFR for Adults 141 mL/min/1.7 3m 12/06 09:49 :00 Interpretive Data: Changed to CKD-EPI 2020 on 2020. [facility] GENERAL CHEMISTRY Estimated GFR for peds Not calculated 12/06 09:49 :00 Interpretive Data: The estimated GFR was calculated using the Rupinder rodríguez Sr equation (2009) . Reference: Pediatric GFR calculator at [employer] Website. [facility] GENERAL CHEMISTRY Mg++ 0.53 mmol/L 0.43 - 0.61 12/06 09:49 :00 [facility] GENERAL CHEMISTRY Ca++ 1.16 mmol/L 1.12 - 1.30 12/06 09:49 :00 [facility] HEMATOLOGY PROFILES WBC 6.46 x10(9)/L 3.50 - 10.50 12/06 09:49 :00 [facility] HEMATOLOGY PROFILES RBC 3.50 x10(12)/L 4.32 - 5.72 12/06 09:49 :00 [facility] HEMATOLOGY PROFILES HGB 10.9 g/dL 13.5 - 17.5 12/06 09:49 :00 Interpretive Data: Tlxvho-kv-kel e transgender patients on testosterone therapy should have results assessed using the male reference range. Hrsd-en-ghaiu e transgender patients on hormone-modul ating therapy clinical judgment is advisedfor assessment. [facility] HEMATOLOGY PROFILES HCT 32.3 % 38.8 - 50.0 12/06 09:49 :00 Interpretive Data: Bcbovf-wy-hri e transgender patients on testosterone therapy should have results assessed using the male reference range. Rzzy-nl-phbfi e transgender patients on hormone-modul ating therapy clinical judgment is advisedfor assessment. [facility] HEMATOLOGY PROFILES MCV 92.3 fL 81.2 - 95.1 12/06 09:49 :00 [facility] HEMATOLOGY PROFILES MCH 31.1 pg 26.0 - 33.0 12/06 09:49 :00 [facility] HEMATOLOGY PROFILES MCHC 33.7 g/dL 32.0 - 36.0 12/06 09:49 :00 [facility] HEMATOLOGY PROFILES RDW CV 14.0 % 11.8 - 15.6 12/06 09:49 :00 [facility] HEMATOLOGY PROFILES RDW SD 47.5 fL 35.1 - 43.9 12/06 09:49 :00 [facility] HEMATOLOGY PROFILES PLT 225 x10(9)/L 150 - 450 12/06 09:49 :00 [facility] HEMATOLOGY PROFILES MPV 9.2 8.0 - 12.0 12/06 09:49 :00 [facility] HEMATOLOGY PROFILES % Nucleated RBCs 0.0 % 12/06 09:49 :00 [facility] HEMATOLOGY PROFILES Absolute Nucleated RBCs 0.0 x10(9)/L 0.0 - 0.0 12/06 09:49 :00 Interpretive Data: Normal values not established in patients less than 18 years old. [facility] GENERAL CHEMISTRY BUN 7 mg/dL 6 - 20 12/04 11:55 :00 [facility] GENERAL CHEMISTRY Calcium 8.4 mg/dL 8.3 - 10.6 12/04 11:55 :00 [facility] GENERAL CHEMISTRY Glucose Lvl 99 mg/dL 70 - 139 12/04 11:55 :00 [facility] GENERAL CHEMISTRY Chloride 107 mmol/L 98 - 107 12/04 11:55 :00 [facility] GENERAL CHEMISTRY Sodium 136 mmol/L 136 - 145 12/04 11:55 :00 Result Comment: verified previous result [facility] GENERAL CHEMISTRY Potassium 3.7 mmol/L 3.5 - 5.1 12/04 11:55 :00 [facility] GENERAL CHEMISTRY CO2 26 mmol/L 20 - 31 12/04 11:55 :00 [facility] GENERAL CHEMISTRY Anion gap 7 mmol/L 0 - 20 12/04 11:55 :00 [facility] GENERAL CHEMISTRY Creatinine, standardized 0.6 mg/dL 0.7 - 1.2 12/04 11:55 :00 Interpretive Data: Yjfsfg-oz-tuu e transgender patients on testosterone therapy should have results assessed using the male reference range. Klpx-pn-nqrtf e transgender patients on hormone-modul ating therapy clinical judgment is advisedfor assessment. [facility] GENERAL CHEMISTRY Estimated GFR for Adults 141 mL/min/1.7 3m 12/04 11:55 :00 Interpretive Data: Changed to CKD-EPI 2020 on 2020. [facility] GENERAL CHEMISTRY Estimated GFR for peds Not calculated 12/04 11:55 :00 Interpretive Data: The estimated GFR was calculated using the B anne Sr equation (2009) . Reference: Pediatric GFR calculator at [employer] Website. [facility] HEMATOLOGY PROFILES WBC 9.63 x10(9)/L 3.50 - 10.50 12/04 11:55 :00 [facility] HEMATOLOGY PROFILES RBC 3.61 x10(12)/L 4.32 - 5.72 12/04 11:55 :00 [facility] HEMATOLOGY PROFILES HGB 11.2 g/dL 13.5 - 17.5 12/04 11:55 :00 Interpretive Data: Lgkppd-mm-bwm e transgender patients on testosterone therapy should have results assessed using the male reference range. Sony-yo-anlnj e transgender patients on hormone-modul ating therapy clinical judgment is advisedfor assessment. [facility] HEMATOLOGY PROFILES HCT 32.1 % 38.8 - 50.0 12/04 11:55 :00 Interpretive Data: Xyneqb-gt-tjd e transgender patients on testosterone therapy should have results assessed using the male reference range. Uynf-qf-dtrtl e transgender patients on hormone-modul ating therapy clinical judgment is advisedfor assessment. [facility] HEMATOLOGY PROFILES MCV 88.9 fL 81.2 - 95.1 12/04 11:55 :00 [facility] HEMATOLOGY PROFILES MCH 31.0 pg 26.0 - 33.0 12/04 11:55 :00 [facility] HEMATOLOGY PROFILES MCHC 34.9 g/dL 32.0 - 36.0 12/04 11:55 :00 [facility] HEMATOLOGY PROFILES RDW CV 14.3 % 11.8 - 15.6 12/04 11:55 :00 [facility] HEMATOLOGY PROFILES RDW SD 46.4 fL 35.1 - 43.9 12/04 11:55 :00 [facility] HEMATOLOGY PROFILES PLT 151 x10(9)/L 150 - 450 12/04 11:55 :00 [facility] HEMATOLOGY PROFILES MPV 9.7 8.0 - 12.0 12/04 11:55 :00 [facility] HEMATOLOGY PROFILES % Nucleated RBCs 0.0 % 12/04 11:55 :00 [facility] HEMATOLOGY PROFILES Absolute Nucleated RBCs 0.0 x10(9)/L 0.0 - 0.0 12/04 11:55 :00 Interpretive Data: Normal values not established in patients less than 18 years old. [facility] XR Chest Portable XR Chest Portable [...] Signed on: 12/05/23 09:38 12/04 04:18 :58 [facility] XR Chest XR Chest XR General Diagnostic [...] Signed on: 12/04/23 16:04 12/03 14:52 :00 [facility] GENERAL CHEMISTRY BUN 8 mg/dL 6 - 20 12/03 10:43 :00 [facility] GENERAL CHEMISTRY Calcium 9.6 mg/dL 8.3 - 10.6 12/03 10:43 :00 [facility] GENERAL CHEMISTRY Glucose Lvl 146 mg/dL 70 - 139 12/03 10:43 :00 [facility] GENERAL CHEMISTRY Chloride 103 mmol/L 98 - 107 12/03 10:43 :00 [facility] GENERAL CHEMISTRY Sodium 138 mmol/L 136 - 145 12/03 10:43 :00 [facility] GENERAL CHEMISTRY Potassium 4.4 mmol/L 3.5 - 5.1 12/03 10:43 :00 [facility] GENERAL CHEMISTRY CO2 29 mmol/L 20 - 31 12/03 10:43 :00 [facility] GENERAL CHEMISTRY Anion gap 10 mmol/L 0 - 20 12/03 10:43 :00 [facility] CHEMISTRY Creatinine, standardized 0.6 mg/dL 0.7 - 1.2 12/03 10:43 :00 Interpretive Data: Yhofdp-yd-sxp e transgender patients on testosterone therapy should have results assessed using the male reference range. Eslj-ql-sumna e transgender patients on hormone-modul ating therapy clinical judgment is advisedfor assessment. [facility] CHEMISTRY Estimated GFR for Adults 135 mL/min/1.7 3m 12/03 10:43 :00 Interpretive Data: Changed to CKD-EPI 2020 on 2020. [facility] CHEMISTRY Estimated GFR for peds Not calculated 12/03 10:43 :00 Interpretive Data: The estimated GFR was calculated using the Rupinder rodríguez Sr equation (2009) . Reference: Pediatric GFR calculator at [employer] Website. [facility] GENERAL CHEMISTRY Ca++ 1.14 mmol/L 1.12 - 1.30 12/03 10:43 :00 [facility] GENERAL CHEMISTRY Mg++ 0.43 mmol/L 0.43 - 0.61 12/03 10:43 :00 [facility] GENERAL CHEMISTRY Phosphorus 3.2 mg/dL 2.4 - 5.1 12/03 10:43 :00 [facility] HEMATOLOGY PROFILES WBC 11.97 x10(9)/L 3.50 - 10.50 12/03 10:43 :00 [facility] HEMATOLOGY PROFILES RBC 4.43 x10(12)/L 4.32 - 5.72 12/03 10:43 :00 [facility] HEMATOLOGY PROFILES HGB 13.7 g/dL 13.5 - 17.5 12/03 10:43 :00 Interpretive Data: Bgirlt-vb-iap e transgender patients on testosterone therapy should have results assessed using the male reference range. Kiic-rb-arglf e transgender patients on hormone-modul ating therapy clinical judgment is advisedfor assessment. [facility] HEMATOLOGY PROFILES HCT 40.1 % 38.8 - 50.0 12/03 10:43 :00 Interpretive Data: Vhjtxe-sb-hoi e transgender patients on testosterone therapy should have results assessed using the male reference range. Ervi-md-nqeor e transgender patients on hormone-modul ating therapy clinical judgment is advisedfor assessment. [facility] HEMATOLOGY PROFILES MCV 90.5 fL 81.2 - 95.1 12/03 10:43 :00 [facility] HEMATOLOGY PROFILES MCH 30.9 pg 26.0 - 33.0 12/03 10:43 :00 [facility] HEMATOLOGY PROFILES MCHC 34.2 g/dL 32.0 - 36.0 12/03 10:43 :00 [facility] HEMATOLOGY PROFILES RDW CV 14.5 % 11.8 - 15.6 12/03 10:43 :00 [facility] HEMATOLOGY PROFILES RDW SD 47.8 fL 35.1 - 43.9 12/03 10:43 :00 [facility] HEMATOLOGY PROFILES PLT 175 x10(9)/L 150 - 450 12/03 10:43 :00 [facility] HEMATOLOGY PROFILES MPV 9.4 8.0 - 12.0 12/03 10:43 :00 [facility] HEMATOLOGY PROFILES % Nucleated RBCs 0.0 % 12/03 10:43 :00 [facility] HEMATOLOGY PROFILES Absolute Nucleated RBCs 0.0 x10(9)/L 0.0 - 0.0 12/03 10:43 :00 Interpretive Data: Normal values not established in patients less than 18 years old. [facility] HEMATOLOGY PROFILES % Neutrophils 85.9 % 12/03 10:43 :00 [facility] HEMATOLOGY PROFILES % Lymphocytes 5.6 % 12/03 10:43 :00 [facility] HEMATOLOGY PROFILES % Monocytes 8.1 % 12/03 10:43 :00 [facility] HEMATOLOGY PROFILES % Eosinophils 0.0 % 12/03 10:43 :00 [facility] HEMATOLOGY PROFILES % Basophils 0.1 % 12/03 10:43 :00 [facility] HEMATOLOGY PROFILES % Immature Granulocytes 0.30 % 0.02 - 0.42 12/03 10:43 :00 [facility] HEMATOLOGY PROFILES Absolute Granulocytes 10.29 x10(9)/L 1.70 - 7.00 12/03 10:43 :00 [facility] HEMATOLOGY PROFILES Abs Lymphocytes 0.67 x10(9)/L 0.90 - 2.90 12/03 10:43 :00 [facility] HEMATOLOGY PROFILES Abs Monocytes 0.97 x10(9)/L 0.30 - 0.90 12/03 10:43 :00 [facility] HEMATOLOGY PROFILES Abs Eosinophils 0.00 x10(9)/L 0.05 - 0.50 12/03 10:43 :00 [facility] HEMATOLOGY PROFILES Abs Basophils 0.01 x10(9)/L 0.00 - 0.30 12/03 10:43 :00 [facility] HEMATOLOGY PROFILES Abs Immature Granulocytes 0.03 x10(9)/L 0.00 - 0.03 12/03 10:43 :00 [facility] XR Chest XR Chest XR General [...] Signed on: 12/04/23 08:42 12/03 05:14 :16 [facility] COAGULATIO N PT 10.3 s 9.4 - 12.5 12/02 22:02 :00 [facility] COAGULATIO N INR 0.9 0.9 - [...] M, Jayson DD, Kiki n holland HJ; [employer] Antithromboti c Therapy and Prevention of Thrombosis Panel. Executive summary: Antithromboti c Therapy and Prevention of Thrombosis, 9th Ed: [employer] Evidence-Base d Clinical Practice Guidelines. Chest. 2011; 141(2 Suppl):7S-47S . doi: 10.1378/chest .1412S3 [facility] GENERAL CHEMISTRY AST-SGOT 56 U/L 12/02 22:02 :00 [facility] GENERAL CHEMISTRY Albumin 3.7 g/dL 3.4 - 5.0 12/02 22:02 :00 [facility] GENERAL CHEMISTRY Alkaline Phosphatase 74 U/L 40 - 129 12/02 22:02 :00 [facility] GENERAL CHEMISTRY ALT-SGPT 38 U/L 10 - 50 12/02 22:02 :00 [facility] GENERAL CHEMISTRY BUN 9 mg/dL 6 - 20 12/02 22:02 :00 [facility] GENERAL CHEMISTRY Calcium 8.7 mg/dL 8.3 - 10.6 12/02 22:02 :00 [facility] GENERAL CHEMISTRY Glucose Lvl 108 mg/dL 70 - 139 12/02 22:02 :00 [facility] GENERAL CHEMISTRY Chloride 111 mmol/L 98 - 107 12/02 22:02 :00 [facility] GENERAL CHEMISTRY Sodium 142 mmol/L 136 - 145 12/02 22:02 :00 [facility] GENERAL CHEMISTRY Potassium 4.3 mmol/L 3.5 - 5.1 12/02 22:02 :00 [facility] GENERAL CHEMISTRY CO2 27 mmol/L 20 - 31 12/02 22:02 :00 [facility] GENERAL CHEMISTRY Anion gap 8 mmol/L 0 - 20 12/02 22:02 :00 [facility] GENERAL CHEMISTRY T Bili 0.46 mg/dL 0.30 - 1.20 12/02 22:02 :00 [facility] GENERAL CHEMISTRY Total Protein 6.6 g/dL 5.7 - 8.2 12/02 22:02 :00 [facility] GENERAL CHEMISTRY Creatinine, standardized 0.7 mg/dL 0.7 - 1.2 12/02 22:02 :00 Interpretive Data: Fnfttr-im-edt e transgender patients on testosterone therapy should have results assessed using the male reference range. Zwbk-js-oxwuh e transgender patients on hormone-modul ating therapy clinical judgment is advisedfor assessment. [facility] GENERAL CHEMISTRY Estimated GFR for Adults 130 mL/min/1.7 3m 12/02 22:02 :00 Interpretive Data: Changed to CKD-EPI 2020 on 2020. [facility] GENERAL CHEMISTRY Estimated GFR for peds Not calculated 12/02 22:02 :00 Interpretive Data: The estimated GFR was calculated using the B anne Sr equation (2009) . Reference: Pediatric GFR calculator at [employer] Website. [facility] HEMATOLOGY PROFILES WBC 11.24 x10(9)/L 3.50 - 10.50 12/02 22:02 :00 [facility] HEMATOLOGY PROFILES RBC 4.57 x10(12)/L 4.32 - 5.72 12/02 22:02 :00 [facility] HEMATOLOGY PROFILES HGB 14.6 g/dL 13.5 - 17.5 12/02 22:02 :00 Interpretive Data: Tziwip-jw-ekw e transgender patients on testosterone therapy should have results assessed using the male reference range. Vnuz-ha-duton e transgender patients on hormone-modul ating therapy clinical judgment is advisedfor assessment. [facility] HEMATOLOGY PROFILES HCT 41.8 % 38.8 - 50.0 12/02 22:02 :00 Interpretive Data: Tcyggs-ot-nbi e transgender patients on testosterone therapy should have results assessed using the male reference range. Yaoa-zb-rutir e transgender patients on hormone-modul ating therapy clinical judgment is advisedfor assessment. [facility] HEMATOLOGY PROFILES MCV 91.5 fL 81.2 - 95.1 12/02 22:02 :00 [facility] HEMATOLOGY PROFILES MCH 31.9 pg 26.0 - 33.0 12/02 22:02 :00 [facility] HEMATOLOGY PROFILES MCHC 34.9 g/dL 32.0 - 36.0 12/02 22:02 :00 [facility] HEMATOLOGY PROFILES RDW CV 13.2 % 11.8 - 15.6 12/02 22:02 :00 [facility] HEMATOLOGY PROFILES RDW SD 44.3 fL 35.1 - 43.9 12/02 22:02 :00 [facility] HEMATOLOGY PROFILES PLT 273 x10(9)/L 150 - 450 12/02 22:02 :00 [facility] HEMATOLOGY PROFILES MPV 9.4 8.0 - 12.0 12/02 22:02 :00 [facility] HEMATOLOGY PROFILES % Nucleated RBCs 0.0 % 12/02 22:02 :00 [facility] HEMATOLOGY PROFILES Absolute Nucleated RBCs 0.0 x10(9)/L 0.0 - 0.0 12/02 22:02 :00 Interpretive Data: Normal values not established in patients less than 18 years old. [facility] HEMATOLOGY PROFILES % Neutrophils 79.0 % 12/02 22:02 :00 [facility] HEMATOLOGY PROFILES % Lymphocytes 14.3 % 12/02 22:02 :00 [facility] HEMATOLOGY PROFILES % Monocytes 5.6 % 12/02 22:02 :00 [facility] HEMATOLOGY PROFILES % Eosinophils 0.4 % 12/02 22:02 :00 [facility] HEMATOLOGY PROFILES % Basophils 0.3 % 12/02 22:02 :00 [facility] HEMATOLOGY PROFILES % Immature Granulocytes 0.40 % 0.02 - 0.42 12/02 22:02 :00 [facility] HEMATOLOGY PROFILES Absolute Granulocytes 8.88 x10(9)/L 1.70 - 7.00 12/02 22:02 :00 [facility] HEMATOLOGY PROFILES Abs Lymphocytes 1.61 x10(9)/L 0.90 - 2.90 12/02 22:02 :00 [facility] HEMATOLOGY PROFILES Abs Monocytes 0.63 x10(9)/L 0.30 - 0.90 12/02 22:02 :00 [facility] HEMATOLOGY PROFILES Abs Eosinophils 0.04 x10(9)/L 0.05 - 0.50 12/02 22:02 :00 [facility] HEMATOLOGY PROFILES Abs Basophils 0.03 x10(9)/L 0.00 - 0.30 12/02 22:02 :00 [facility] HEMATOLOGY PROFILES Abs Immature Granulocytes 0.05 x10(9)/L 0.00 - 0.03 12/02 22:02 :00 [facility] XR Chest Portable XR Chest Portable [...] Signed on: 12/03/23 20:37 12/02 19:48 :30 [facility] XR Exam Incorrect Count XR Exam Incorrect [...] Signed on: 12/03/23 19:32 12/02 19:09 :28 [facility] XR Knee Left XR Knee Left XR [...] Signed on: 12/03/23 17:51 12/02 17:37 :[address] [facility] [address] Spine Cervical CT Spine Cervical CT [...] regarding this report please call [facility] at [phone] I have personally reviewed the images and attest to the contents of this report. * * *Final Report* * * Electronic ally Signed by: Margret Almanza DO Signed on: 12/03/23 20:59 Transcribe d date/time: 12/03/23 21:00 12/02 17:15 :[address] [facility] [address] Spine Lumbar CT Spine Lumbar CT [...] findings, as above. Electronic ally signed by Adlee Silverman MD at 12/03/2023 18:04 For questions regarding this report please call [facility] at I have personally reviewed the images and attest to the contents of this report. * * *Final Report* * * Electronic ally Signed by: Andrew MCMAHON, Cuauhtemoc Coleman Signed on: 12/04/23 06:58 Transcribe d date/time: 12/04/23 07:00 12/02 17:15 :[address] [facility] [address] Spine Thoracic CT Spine Thoracic CT [...] regarding this report please call [facility] at [phone] I have personally reviewed the images and attest to the contents of CT Scan/CT Angio Report this report. * * *Final Report* * * Electronic ally Signed by: Andrew MCMAHON, Cuauhtemoc Coleman Signed on: 12/04/23 06:58 Transcribe d date/time: 12/04/23 06:59 12/02 17:15 :[address] [facility] [address] Abdomen and Pelvis CT Abdomen and [...] Signed on: 12/03/23 18:52 12/02 17:15 :[address] [facility] [address] Head or Brain CT Head or [...] regarding this report please call [facility] at [phone] I have personally reviewed the images and attest to the contents of this report. * * *Final Report* * * Electronic ally Signed by: Margret Almanza DO Signed on: 12/03/23 20:53 Transcribe d date/time: 12/03/23 20:55 12/02 17:15 :[address] [facility] [address] Chest CT Chest CT Scan/CT Angio [...] Signed on: 12/03/23 18:52 12/02 17:15 :08 [facility] XR Chest Portable XR Chest Portable XR [...] Signed on: 12/03/23 17:43 12/02 17:03 :03 [facility] Consultation Notes Results Value Date Source Op/Procedure [...] abdominal wall avulsion 35 cm Right 28 Israeli chest tube thoracostomy Surgeon(s) Rajat Savage MD Apprenticeship Representative Resident(s), Coni Funes MD, Vincent Guerrero MS3 [...] skin partially closed with nylons over 2 [place] drains traversing the midline and lateral aspects [...] We began with placement of a 28 Israeli straight chest tube. Along the right inframammary [...] was done with #1 Vicryl's in interrupted hbdjrh-uv-kaekc fashion from above and below. We then replaced two 1 inch [place] is 1 along the midline underneath our [...] was evaluated in standard ATLS fashion. The public health internship [facility] resident was present for primary survey. [...] CDT [2] CT Head or Brain; [facility] 12/03/2023 18:00 CDT [3] [facility] 12/03/2023 18:00 CDT [4] CT Spine Thoracic; Benjamin RT(R) (CT), [facility] 12/03/2023 18:00 CDT [5] CT Spine Lumbar; Benjamin RT(R) (CT), [facility] 12/03/2023 18:00 CDT [6] XR Chest Portable; [...] Nontachycardic and normotensive. Patient was initially on NEEDLE GRADER for pain control but it was discontinued [...] lower abdominal wall avulsion Exploratory laparotomy Wide [place] drainage and closure large abdominal wall avulsion 35 cm Right 28 Israeli chest tube thoracostomy Consultants Pending Labs Discharge [...] SURGERY SBP NIBP 145 mm[Hg] 12/07/2023 13:40:37 [facility] DBP NIBP 77 mm[Hg] 12/07/2023 13:40:37 [facility] Mean NIBP 100 mm[Hg] 12/07/2023 13:40:37 [facility] Heart Rate 81 bpm 12/07/2023 13:40:37 [facility] SpO2 99 % 12/07/2023 13:40:37 [facility] Temperature (Celsius) 36.2 Kaylee 12/07/2023 13:40:37 [facility] Respiratory Rate 18 breaths/min 12/07/2023 13:40:37 [facility] SBP NIBP 126 mm[Hg] 12/07/2023 02:48:26 [facility] DBP NIBP 67 mm[Hg] 12/07/2023 02:48:26 [facility] Mean NIBP 86 mm[Hg] 12/07/2023 02:48:26 [facility] Heart Rate 94 bpm 12/07/2023 02:48:26 [facility] SpO2 97 % 12/07/2023 02:48:26 [facility] Temperature (Celsius) 36.9 Kaylee 12/07/2023 02:48:26 [facility] Respiratory Rate 16 breaths/min 12/07/2023 02:48:26 [facility] Heart Rate 91 bpm 12/06/2023 21:41:00 [facility] Respiratory Rate 18 12/06/2023 21:41:00 [facility] SpO2 100 % 12/06/2023 21:41:00 [facility] SBP NIBP 119 mm[Hg] 12/06/2023 19:29:35 [facility] DBP NIBP 74 mm[Hg] 12/06/2023 19:29:35 [facility] Mean NIBP 89 mm[Hg] 12/06/2023 19:29:35 [facility] Heart Rate 97 bpm 12/06/2023 19:29:35 [facility] SpO2 99 % 12/06/2023 19:29:35 [facility] Temperature (Celsius) 36.4 Kaylee 12/06/2023 19:29:35 [facility] Respiratory Rate 16 breaths/min 12/06/2023 19:29:35 [facility] Temperature (Celsius) 36.4 Kaylee 12/06/2023 13:00:00 [facility] SBP NIBP 116 mm[Hg] 12/06/2023 13:00:00 [facility] DBP NIBP 69 mm[Hg] 12/06/2023 13:00:00 [facility] Mean NIBP 85 mm[Hg] 12/06/2023 13:00:00 [facility] Height (cm) 180 cm 12/04/2023 02:00:00 [facility] Weight (kg) 91.8 kg 12/03/2023 23:34:00 [facility] Height (cm) 180 cm 12/03/2023 23:34:00 [facility] BMI 28.3 kg/m2 12/03/2023 23:34:00 [facility] Encounters Location Location Details Encounter Type Encounter Number Reason For Visit Attending Provider ADM Date DC Date Status Source [facility] Inpatient [id number] Vincent Renner 12/02 21:55 :30 12/06 21:50 :00 [facility] [id number] Carmelo Savage 12/16 18:00 :10 12/17 04:59 :59 [facility] [id number] Ky Stratton 12/23 19:06 :05 12/24 04:59 :59 [facility] Social History Social History Date Source No data available for this section 12/25/2023 [facility] No data available for this section 12/18/2023 [facility] No data available for this section 12/07/2023 [facility]
== END 2024-04-04 21:50 | disposition home or self-care (01) ==
PROVIDERS: Emergency Provider Physician Assistant
DX: R21 Rash and other nonspecific skin eruption (principal); F17.210 Nicotine dependence, cigarettes, uncomplicated
CPT/HCPCS: 99283